=== PATIENT | male | born 1990 | race Caucasian/White ===

== ENCOUNTER 2018-08-04 20:05 | Emergency (ER) | payer OTHER ==
--- NOTE | 2018-08-04 20:44 | ED Physician Chart ---
ED Chief Complaint/HPI - Patient Information Date Seen:: 08/04/18 Time Seen:: 20:43 Chief Complaint:: Right shoulder pain History of Present Illness:: 28 male with history of alcohol abuse treated with librium, tripped and fell a day ago after drinking alcohol. Pt went to ER yesterday but could not wait and left ER. Pt went home and drank more alcohol. Pt's shoulder pain persisted and was brought by mother to ER this evening. Pt had significant right shoulder pain with painful and limited ROM. Allergies:: Allergies Allergy/AdvReac Type Severity Reaction Status Date / Time No Known Allergies Allergy Verified 08/04/18 20:18 Vitals:: Vital Signs - 8 hr 08/04/18 20:05 Temp 98.1 F HR 130 RR 17 BP 120/76 O2 Sat % 97 ED Review of Systems - Review of Systems General/Constitutional: No fever Skin: No skin lesions Head: Light headed Eyes: No pain ENT: No nasal drainage Neck: No neck pain Pulmonary: No SOB GI: No nausea, No vomiting Musculoskeletal: Bone or joint pain Neurological: Weakness ED Past Medical History - Past Medical History Past Medical History: Other (Alcohol abuse) Social History: Non Smoker, Alcohol, Illicit Drug Use (marijuana) Surgical History: None Family Medical History - Family Member Mother History Unknown: Yes ED Physical Exam - Physical Examination General/Constitutional: Awake, Alert Head: Atraumatic Eyes: PERRL, EOMI Skin: No skin lesions ENMT: Nasal exam nl Neck: No nuchal rigidity Respiratory: No Wheeze/Rhonchi/Rales Cardio Vascular: RRR, No murmur, gallop, rubs, NL S1 S2 GI: No tenderness/rebounding/guarding Other Extremities comments:: Right shoulder tenderness, with painful and limited ROM Neuro/Psych: Alert/oriented ED Labs/Radiology/EKG Results - Radiology Results Results: Right shoulder X ray: extra-articular unifocal tuberocity fracture ED Assessment - Assessment General Assessment: Right humerus greater tuberocity fracture Alcohol abuse Assessment/Comments:: Right shoulder X ray Toradol 60mg IM Right shoulder sling Follow up with PCP and orthopedic surgeon ED Septic Shock - . Is Septic Shock (SBP<90, OR Lactate>4 mmol\L) present?: No - <6hrs of presentation: Vital Signs: Vital Signs - 8 hr 08/04/18 20:05 Temp 98.1 F HR 130 RR 17 BP 120/76 O2 Sat % 97 ED Reassessment (Disposition) - Reassessment Reassessment Condition:: Improved - Aftercare/Follow up Instructions Notes:: Follow up orthopedic surgeon within 1-2 days - Patient Disposition Discharge/Transfer:: Home
--- NOTE | 2018-08-05 10:03 | Diagnostic Imaging Report ---
Right shoulder 2 views Indication: Trauma Comparison: none Findings: Minimal displaced fracture of the proximal humerus primarily involving the tuberosities. There may be a tiny ossicle adjacent to the humeral head. No dislocation. Surrounding soft tissue swelling is noted. Impression: Proximal humeral fracture primarily involving the tuberosities. ER was aware of the findings at the time of the exam. In the setting of trauma, if clinical symptoms persist and there is continued concern for an occult fracture, follow up exams in 5-7 days is suggested.
== END 2018-08-04 21:20 | disposition home or self-care (01) ==
LOC: ER 20:05
DX: S42.251A Displaced fracture of greater tuberosity of right humerus, initial encounter for closed fracture (principal); F10.10 Alcohol abuse, uncomplicated; W01.0XXA Fall on same level from slipping, tripping and stumbling without subsequent striking against object, initial encounter; Y93.89 Activity, other specified; Y92.89 Other specified places as the place of occurrence of the external cause; Y99.8 Other external cause status
CPT/HCPCS: 99283; 96372; 73030; J1885; Z7502

== ENCOUNTER 2018-09-20 00:02 | Emergency (ER) | payer OTHER ==
--- NOTE | 2018-09-20 00:39 | ED Physician Chart ---
ED Chief Complaint/HPI - Patient Information Date Seen:: 09/20/18 Time Seen:: 00:35 Chief Complaint:: alcoholic withdrawal History of Present Illness:: this is a 28 yr old male who states that he is trying to withdraw from alcoholism and want something to stop his shaking and heart pounding. Allergies:: Allergies Allergy/AdvReac Type Severity Reaction Status Date / Time No Known Allergies Allergy Verified 08/04/18 20:18 Vitals:: Vital Signs - 8 hr 09/20/18 00:10 Temp 98.4 F HR 120 RR 15 BP 168/113 O2 Sat % 99 Historian:: Patient Review:: Nurse's Note Reviewed, Old Chart Reviewed ED Review of Systems - Review of Systems General/Constitutional: No fever, No chills, No weight loss, No weakness, No diaphoresis, No edema, No loss of appetite Skin: No skin lesions, No rash, No bruising Head: No headache, No light-headedness Eyes: No loss of vision, No pain, No diplopia ENT: No earache, No nasal drainage, No sore throat, No tinnitus Neck: No neck pain, No swelling, No thyromegaly, No stiffness, No mass noted Cardio Vascular: No chest pain, Palpitations, No PND, No orthopnea, No edema Pulmonary: No SOB, No cough, No sputum, No wheezing GI: No nausea, No vomiting, No diarrhea, No pain, No melena, No hematochezia, No constipation, No hematemesis G/U: No dysuria, No frequency, No hematuria Musculoskeletal: No bone or joint pain, No back pain, No muscle pain Endocrine: No polyuria, No polydipsia Psychiatric: No prior psych history, No depression, No anxiety, No suicidal ideation Hematopoietic: No bruising, No lymphadenopathy Allergic/Immuno: No urticaria, No angioedema Neurological: No syncope, No focal symptoms, No weakness, No paresthesia, No headache, No seizure, No dizziness, No confusion, No vertigo Other: shaking and tremors ED Past Medical History - Past Medical History Obtainable: Yes Past Medical History: No significant medical hx Family History: None Social History: Non Smoker, Alcohol, No Drug Use, Employed Surgical History: None Psychiatricy History: None Medication: Reviewed Family Medical History - Family Member Mother History Unknown: Yes ED Physical Exam - Physical Examination General/Constitutional: Awake, Well-developed, well-nourished, Alert, No distress, GCS 15, Non-toxic appearing, Ambulatory Head: Atraumatic Eyes: Lids, conjuctiva normal, PERRL, EOMI Skin: Nl inspection, No rash, No skin lesions, No ecchymosis, Well hydrated, No lymphadenopathy ENMT: External ears, nose nl, Nasal exam nl, Lips, teeth, gums nl Neck: Nontender, Full ROM w/o pain, No JVD, No nuchal rigidity, No bruit, No mass, No stridor Respiratory: Nl effort/Exclusion, Clear to Auscultation, No Wheeze/Rhonchi/Rales Cardio Vascular: RRR, No murmur, gallop, rubs, NL S1 S2 GI: No tenderness/rebounding/guarding, No organomegaly, No hernia, Normal BS's, Nondistended, No mass/bruits, No McBurney tenderness : No CVA tenderness Extremities: No tenderness or effusion, Full ROM, normal strength in all extremities, No edema, Normal digits & nails Neuro/Psych: Alert/oriented, DTR's symmetric, Normal sensory exam, Normal motor strength, Judgement/insight normal, Mood normal, Normal gait, No focal deficits Misc: Normal back, No paraspinal tenderness ED Labs/Radiology/EKG Results - Lab Results Results: Abnormal Lab Results 09/20/18 09/20/18 09/20/18 00:40 00:40 00:40 WBC 7.0 RBC 5.16 Hgb 17.2 Hct 51.2 MCV 99.1 H MCH 33.2 H MCHC Differential 33.5 RDW 11.9 Plt Count 290 MPV 6.5 Add Manual Diff YES Band Neutrophils % 0 Neutrophils (Manual) 70 Lymphocytes 20 Monocytes 10 Sodium 135 L Potassium 3.8 Chloride 96 L Carbon Dioxide 22.3 Anion Gap 20.5 H BUN 8 Creatinine 0.7 Est GFR ( Amer) > 60.0 Est GFR (Non-Af Amer) > 60.0 BUN/Creatinine Ratio 11.4 Glucose 128 H Calcium 9.6 Total Bilirubin 1.5 H AST 53 H ALT 29 Alkaline Phosphatase 98 Troponin I < 0.01 L Total Protein 7.7 Albumin 4.3 Globulin 3.4 Albumin/Globulin Ratio 1.3 TSH Ethyl Alcohol 09/20/18 09/20/18 00:40 00:40 WBC RBC Hgb Hct MCV MCH MCHC Differential RDW Plt Count MPV Add Manual Diff Band Neutrophils % Neutrophils (Manual) Lymphocytes Monocytes Sodium Potassium Chloride Carbon Dioxide Anion Gap BUN Creatinine Est GFR ( Amer) Est GFR (Non-Af Amer) BUN/Creatinine Ratio Glucose Calcium Total Bilirubin AST ALT Alkaline Phosphatase Troponin I Total Protein Albumin Globulin Albumin/Globulin Ratio TSH 1.50 Ethyl Alcohol < 10 ED Septic Shock - . Is Septic Shock (SBP<90, OR Lactate>4 mmol\L) present?: No - <6hrs of presentation: Vital Signs: Vital Signs - 8 hr 09/20/18 00:10 Temp 98.4 F HR 120 RR 15 BP 168/113 O2 Sat % 99 ED Reassessment (Disposition) - Reassessment Reassessment Condition:: Improved - Diagnosis Diagnosis:: alcohol withdrawal syndrome - Aftercare/Follow up Instructions Aftercare/Follow-Up Instructions:: Counseled pt regarding lab results/diagnosis & need follow up, Refer to Discharge Instructions, Counseled pt & family regarding lab results/diagnosis & need follow up - Patient Disposition Discharge/Transfer:: Home Condition at Disposition:: Improved
[2018-09-20 00:45] LABS: HEMATOCRIT 51.2 % (41.0-60); HEMOGLOBIN 17.2 gm/dL (12-16); MEAN CELL VOLUME 99.1 fl (80-99); MEAN CORPUSCULAR HEMOGLOBIN 33.2 pg (26.0-30.0); MEAN CORPUSCULAR HGB CONC 33.5 pg (28.0-36.0); MEAN PLATELET VOLUME 6.5 fl; PLATELET COUNT 290 Th/cmm (150-400); RED BLOOD COUNT 5.16 Mil/cmm (4.30-5.70); RED CELL DISTRIBUTION WIDTH 11.9 % (11.5-20.0)
[2018-09-20 01:35] LABS: ALB/GLOB RATIO 1.3 (1.0-1.8); ALBUMIN 4.3 gm/dL (4.2-5.5); ALKALINE PHOSPHATASE 98 U/L (34-104); ANION GAP 20.5 (7.0-16.0); BILIRUBIN,TOTAL 1.5 mg/dL (0.3-1.0); BUN - UREA NITROGEN 8 mg/dL (7-25); CALCIUM SERUM 9.6 mg/dL (8.6-10.3); CARBON DIOXIDE 22.3 mEq/L (21.0-31.0); CHLORIDE 96 mEq/L (98-107); CREATININE - SERUM 0.7 mg/dL (0.7-1.3); GFR AFRICAN-AMERICAN > 60.0 ml/min (>90); GFR NON AFRICAN-AMERICAN > 60.0 ml/min; GLUCOSE 128 mg/dL (70-105); NEUTROPHILS 70 % (40-80); POTASSIUM SERUM 3.8 mEq/L (3.5-5.1); SGOT 53 U/L (13-39); SGPT/ALT 29 U/L (7-52); SODIUM SERUM 135 mEq/L (136-145); TOTAL PROTEIN,SERUM 7.7 gm/dL (6.0-8.3)
[2018-09-20 01:36] LABS: BAND NEUTROPHILE 0 % (0-10); LYMPHOCYTE 20 % (20-50); MONOCYTE 10 % (2-10)
== END 2018-09-20 02:07 | disposition home or self-care (01) ==
LOC: ER 00:02
DX: F10.239 Alcohol dependence with withdrawal, unspecified (principal); Y90.0 Blood alcohol level of less than 20 mg/100 ml
CPT/HCPCS: 99284; 96374; 93005; 84484; 36415; 84443; 85007; 85025; 80320; 80053; J2060

== ENCOUNTER 2018-11-11 21:05 | Emergency (ER) | payer OTHER ==
[2018-11-11] MEDS ORDERED: Sodium Chloride 0.9% 1,000 ML IV ONE (22:05)
--- NOTE | 2018-11-11 22:15 | ED Physician Chart ---
ED Chief Complaint/HPI - Patient Information Date Seen:: 11/11/18 Time Seen:: 22:12 Chief Complaint:: palpitations etoh abuse History of Present Illness:: 28 yr old male with hx of etoh abuse too one fifth vodka today with chest preassure and palpitations Allergies:: Allergies Allergy/AdvReac Type Severity Reaction Status Date / Time No Known Allergies Allergy Verified 08/04/18 20:18 Vitals:: Vital Signs - 8 hr 11/11/18 21:05 Temp 98.8 F HR 117 RR 20 BP 135/92 O2 Sat % 99 ED Review of Systems - Review of Systems General/Constitutional: No fever Skin: No skin lesions Head: No headache Eyes: No loss of vision ENT: No earache Neck: No neck pain, No swelling, No thyromegaly, No stiffness, No mass noted Cardio Vascular: No chest pain, No palpitations, No PND, No orthopnea, No edema Pulmonary: No SOB, No cough, No sputum, No wheezing GI: No nausea, No vomiting, No diarrhea, No pain, No melena, No hematochezia, No constipation, No hematemesis G/U: No dysuria, No frequency, No hematuria Musculoskeletal: No bone or joint pain, No back pain, No muscle pain Endocrine: No polyuria, No polydipsia Psychiatric: No prior psych history, No depression, No anxiety, No suicidal ideation Hematopoietic: No bruising, No lymphadenopathy Allergic/Immuno: No urticaria, No angioedema Neurological: No syncope, No focal symptoms, No weakness, No paresthesia, No headache, No seizure, No dizziness, No confusion, No vertigo ED Past Medical History - Past Medical History Past Medical History: No significant medical hx Family Medical History - Family Member Mother History Unknown: Yes ED Physical Exam - Physical Examination General/Constitutional: Awake, Well-developed, well-nourished, Alert, No distress, GCS 15, Non-toxic appearing, Ambulatory Other Gen/Cons comments:: strong etoh breath Head: Atraumatic Eyes: Lids, conjuctiva normal, PERRL, EOMI Skin: Nl inspection, No rash, No skin lesions, No ecchymosis, Well hydrated, No lymphadenopathy ENMT: External ears, nose nl, Nasal exam nl, Lips, teeth, gums nl Neck: Nontender, Full ROM w/o pain, No JVD, No nuchal rigidity, No bruit, No mass, No stridor Respiratory: Nl effort/Exclusion, Clear to Auscultation, No Wheeze/Rhonchi/Rales Cardio Vascular: RRR, No murmur, gallop, rubs, NL S1 S2 GI: No tenderness/rebounding/guarding, No organomegaly, No hernia, Normal BS's, Nondistended, No mass/bruits, No McBurney tenderness : No CVA tenderness Extremities: No tenderness or effusion, Full ROM, normal strength in all extremities, No edema, Normal digits & nails Neuro/Psych: Alert/oriented, DTR's symmetric, Normal sensory exam, Normal motor strength, Judgement/insight normal, Mood normal, Normal gait, No focal deficits Misc: Normal back, No paraspinal tenderness ED Assessment - Assessment General Assessment: palpitations etoh ED Septic Shock - . Is Septic Shock (SBP<90, OR Lactate>4 mmol\L) present?: No - <6hrs of presentation: Vital Signs: Vital Signs - 8 hr 11/11/18 21:05 Temp 98.8 F HR 117 RR 20 BP 135/92 O2 Sat % 99 ED Reassessment (Disposition) - Reassessment Reassessment:: etoh abuse palpitations - Diagnosis Diagnosis:: as above - Patient Disposition Discharge/Transfer:: Home Condition at Disposition:: Stable
[2018-11-11] MEDS ORDERED: Multivitamin Inj 10 ML, Thiamine HCL 100 MG, Magnesium Sulfate 2 GM, Folic Acid 1 MG in... IV ONE (22:17)
[2018-11-11 22:27] LABS: URINE SOURCE CLEAN C
[2018-11-11] MEDS ORDERED: Thiamine 100 mg/mL 2mL Vial ONE (22:29)
[2018-11-11] MEDS ORDERED: Magnesium Sulfate 1 gm/2 mL 2mL Vial IV ONE (22:30)
[2018-11-11] MEDS ORDERED: Multivitamin Inj 10 mL Vial IV ONE (22:31)
[2018-11-11 22:33] LABS: MEAN CELL VOLUME 99.9 fl (80-99)
[2018-11-11 22:35] LABS: HEMOGLOBIN 16.6 gm/dL (12-16); MEAN CORPUSCULAR HEMOGLOBIN 33.9 pg (26.0-30.0); MEAN CORPUSCULAR HGB CONC 33.9 pg (28.0-36.0); MEAN PLATELET VOLUME 6.7 fl; PLATELET COUNT 297 Th/cmm (150-400); RED CELL DISTRIBUTION WIDTH 12.7 % (11.5-20.0); WHITE BLOOD COUNT 4.8 Th/cmm (4.8-10.8)
[2018-11-11 22:36] LABS: URINE BILIRUBIN NEGATIVE (NEGATIVE); URINE BLOOD TRACE (NEGATIVE); URINE GLUCOSE (UA) NEGATIVE (NEGATIVE); URINE KETONE NEGATIVE (NEGATIVE); URINE LEUKOCYTE ESTERASE NEGATIVE (NEGATIVE); URINE MICROSCOPIC INDICATED? YES; URINE NITRATE NEGATIVE (NEGATIVE); URINE PH 7.5 (4.6 - 8.0); URINE PROTEIN 100 mg/dL (NEGATIVE); URINE UROBILINOGEN 0.2 E.U./dL (0.2 - 1.0)
[2018-11-11 22:44] LABS: ALB/GLOB RATIO 1.5 (1.0-1.8); ALBUMIN 4.5 gm/dL (4.2-5.5); ALKALINE PHOSPHATASE 79 U/L (34-104); ANION GAP 16.3 (7.0-16.0); BILIRUBIN,TOTAL 0.5 mg/dL (0.3-1.0); BUN - UREA NITROGEN 5 mg/dL (7-25); CALCIUM SERUM 9.2 mg/dL (8.6-10.3); CARBON DIOXIDE 28.7 mEq/L (21.0-31.0); CHLORIDE 100 mEq/L (98-107); CREATININE - SERUM 0.8 mg/dL (0.7-1.3); CREATININE KINASE 1027 U/L (30-223); GFR AFRICAN-AMERICAN > 60.0 ml/min (>90); GFR NON AFRICAN-AMERICAN > 60.0 ml/min; GLUCOSE 105 mg/dL (70-105); SGOT 91 U/L (13-39); SGPT/ALT 52 U/L (7-52); SODIUM SERUM 141 mEq/L (136-145); TOTAL PROTEIN,SERUM 7.6 gm/dL (6.0-8.3)
[2018-11-11 22:45] LABS: AMPHETAMINE URINE NEGATIVE (NEGATIVE); BARBITURATES URINE NEGATIVE (NEGATIVE); BENZODIAZEPINES QUAL URINE POSITIVE (NEGATIVE); CANNABINOID THC NEGATIVE (NEGATIVE); COCAINE METABOLITE QUAL URINE NEGATIVE (NEGATIVE); METHADONE URINE NEGATIVE (NEGATIVE); METHAMPHETAMINES QUAL URINE NEGATIVE (NEGATIVE); OPIATES (MORPHINE) QUAL. URINE NEGATIVE (NEGATIVE); PHENCYCLIDINE (PCP) URINE NEGATIVE (NEGATIVE); TRICYCLICS (TCA) QUAL. URINE NEGATIVE (NEGATIVE)
[2018-11-11 22:49] LABS: URINE CLARITY HAZY (CLEAR); URINE COLOR YELLOW
[2018-11-11 22:50] LABS: URINE AMORPHOUS SEDIMENT FEW PHOSPHATES (NONE SEEN); URINE BACTERIA OCCASIONAL /hpf (NONE SEEN); URINE EPITHELIAL CELLS OCCASIONAL /lpf (FEW); URINE RBC 0-2 /hpf (0-5); URINE WBC 0-2 /hpf (0-5)
[2018-11-11 22:59] LABS: BAND NEUTROPHILE 2 % (0-10); LYMPHOCYTE 44 % (20-50); MONOCYTE 6 % (2-10); NEUTROPHILS 48 % (40-80); PLATELET ESTIMATE ADEQUATE (NORMAL)
== END 2018-11-12 01:22 | disposition home or self-care (01) ==
LOC: ER 21:05
DX: F10.10 Alcohol abuse, uncomplicated (principal); R00.2 Palpitations
CPT/HCPCS: 99284; 96374; 93005; 84484; 36415; 80307; 85007; 85025; 81001; 80320; 82550; 82553; 80053; J3411; J3475; J7030; X6226; X6598

== ENCOUNTER 2019-02-19 21:26 | Emergency (ER) | payer OTHER ==
[2019-02-19 21:43] VITALS: BP 121/89
--- NOTE | 2019-02-19 21:48 | ED Physician Chart ---
ED Chief Complaint/HPI - Patient Information Date Seen:: 02/19/19 Time Seen:: 21:43 Chief Complaint:: lacerated finger History of Present Illness:: this is a 28 yo male who cut his finger while working on a project at home at 8pm tonight. he denies all other injuries and denies having a tetanus immunization. Allergies:: Allergies Allergy/AdvReac Type Severity Reaction Status Date / Time No Known Allergies Allergy Verified 08/04/18 20:18 Vitals:: Vital Signs - 8 hr 02/19/19 02/19/19 21:28 21:32 Temp 98 F HR 107 RR 18 BP 121/89 121/89 O2 Sat % 98 Historian:: Patient Review:: Nurse's Note Reviewed ED Review of Systems - Review of Systems General/Constitutional: No fever, No chills, No weight loss, No weakness, No diaphoresis, No edema, No loss of appetite Skin: No skin lesions, No rash, No bruising Head: No headache, No light-headedness Eyes: No loss of vision, No pain, No diplopia ENT: No earache, No nasal drainage, No sore throat, No tinnitus Neck: No neck pain, No swelling, No thyromegaly, No stiffness, No mass noted Cardio Vascular: No chest pain, No palpitations, No PND, No orthopnea, No edema Pulmonary: No SOB, No cough, No sputum, No wheezing GI: No nausea, No vomiting, No diarrhea, No pain, No melena, No hematochezia, No constipation, No hematemesis G/U: No dysuria, No frequency, No hematuria Musculoskeletal: No bone or joint pain, No back pain, No muscle pain, Other ( finger laceration ) Endocrine: No polyuria, No polydipsia Psychiatric: No prior psych history, No depression, No anxiety, No suicidal ideation Hematopoietic: No bruising, No lymphadenopathy Allergic/Immuno: No urticaria, No angioedema Neurological: No syncope, No focal symptoms, No weakness, No paresthesia, No headache, No seizure, No dizziness, No confusion, No vertigo ED Past Medical History - Past Medical History Obtainable: Yes Past Medical History: No significant medical hx Family History: None Social History: Non Smoker, Alcohol, No Drug Use, Employed Surgical History: None Psychiatricy History: None Medication: Reviewed Family Medical History - Family Member Mother History Unknown: Yes ED Physical Exam - Physical Examination General/Constitutional: Awake, Well-developed, well-nourished, Alert, No distress, GCS 15, Non-toxic appearing, Ambulatory Head: Atraumatic Eyes: Lids, conjuctiva normal, PERRL, EOMI Skin: Nl inspection, No rash, No skin lesions, No ecchymosis, Well hydrated, No lymphadenopathy ENMT: External ears, nose nl, Nasal exam nl, Lips, teeth, gums nl Neck: Nontender, Full ROM w/o pain, No JVD, No nuchal rigidity, No bruit, No mass, No stridor Respiratory: Nl effort/Exclusion, Clear to Auscultation, No Wheeze/Rhonchi/Rales Cardio Vascular: RRR, No murmur, gallop, rubs, NL S1 S2 GI: No tenderness/rebounding/guarding, No organomegaly, No hernia, Normal BS's, Nondistended, No mass/bruits, No McBurney tenderness : No CVA tenderness Extremities: No tenderness or effusion, Full ROM, normal strength in all extremities, No edema, Normal digits & nails (left third distal finger 1/2 cm laceration.) Neuro/Psych: Alert/oriented, DTR's symmetric, Normal sensory exam, Normal motor strength, Judgement/insight normal, Mood normal, Normal gait, No focal deficits Misc: Normal back, No paraspinal tenderness ED Assessment - Assessment General Assessment: finger laceration Location:: left third distal finger laceration Laceration Type:: Simple Wound Length: 0.5 cm Prep/Irrigation:: cleaned with betadine and sterile water. Inspection: No dirt/debris, Bases & margins visual, NO FB Local Anesthetic:: none Comments:: the wound was closed with stri-strips. Post Procedure/Splint Exam: No Active Bleeding, Neuro/Vascular Exam (normal) ED Septic Shock - . Is Septic Shock (SBP<90, OR Lactate>4 mmol\L) present?: No - <6hrs of presentation: Vital Signs: Vital Signs - 8 hr 02/19/19 02/19/19 21:28 21:32 Temp 98 F HR 107 RR 18 BP 121/89 121/89 O2 Sat % 98 ED Reassessment (Disposition) - Reassessment Reassessment Condition:: Improved - Diagnosis Diagnosis:: left 3rd finge laceration - Aftercare/Follow up Instructions Aftercare/Follow-Up Instructions:: Counseled pt regarding lab results/diagnosis & need follow up, Refer to Discharge Instructions, Counseled pt & family regarding lab results/diagnosis & need follow up Medication Prescribed:: [email or web address] - Patient Disposition Discharge/Transfer:: Home Condition at Disposition:: Improved
== END 2019-02-19 22:25 | disposition home or self-care (01) ==
LOC: ER 21:26
DX: S61.213A Laceration without foreign body of left middle finger without damage to nail, initial encounter (principal); W26.0XXA Contact with knife, initial encounter; Y93.89 Activity, other specified; Y92.009 Unspecified place in unspecified non-institutional (private) residence as the place of occurrence of the external cause; Y99.8 Other external cause status
CPT/HCPCS: 12001; Z7502